=== PATIENT | male | born 1945 | race Caucasian/White ===

== ENCOUNTER → 2021-01-29 | Outpatient (CLI) | payer MEDICARE, BC ==
[~2021-01-29] MED LIST: BACTRIM DS TAB1 EACH PO; COLACE100 MG PO; FISH OIL 1,2001 EAC3 PO; IBUPROFEN 600600 M1 PO; NORCO 5-325 TA1 EACH PO; PROTONIX40 M2 PO; TOPROL XL25 MG PO; TRIPLE ANTIBIOT28 G1 TP; ZOCOR40 MG PO
== END ==
LOC: M.ULTRA 13:00
PROVIDERS: ATTEND Internal Medicine Cardiovascular Disease
DX: I65.23 Occlusion and stenosis of bilateral carotid arteries (principal)